=== PATIENT | female | born 1945 | race Caucasian/White ===

== ENCOUNTER 2016-12-11 19:24 | Observation (INO) | payer OTHER ==
[~2016-12-11] VITALS: Ht 162.6 cm; Wt 102.9 kg
[~2016-12-11 19:24] MED LIST: ASCORBIC ACID500 M3 PO; ASPIRIN EC325 MG PO; CLARITIN-D 21 TABLET PO; Claritin-D 24 Hour PO; Combivent IH; DOCUSATE SODIU100 MG PO; DUONEB 2.5-0.5 M3 ML IH; ENDOCET 5-3251 EACH PO; Ecotrin PO; FLONASE16 G1 BOTH NARES; Feosol PO; Flonase BOTH NARES; Glucophage PO; LOVASTATIN40 MG PO; MELOXICAM15 MG PO; METFORMIN HCL500 M1 PO; Maxzide 75/50 PO; Mevacor PO; Mobic PO; OMEPRAZOLE40 M1 PO; OXYCODONE-ACET1 EACH PO; PRILOSEC40 MG PO; PROAIR HFA8.5 GM IH; PROVENTIL,2.5 MG/3 M IH; Percocet 5/325,Endoc PO; PriLOSEC PO; Proventil,Ventolin H IH; QVAR 80 MCG IH; QVAR 80 MCG IN7.3 GM IH; RESTORIL15 MG PO; SINGULAIR10 MG PO; Senokot S,Pericolace PO; Singulair PO; TEMAZEPAM15 MG PO; TRAMADOL HCL50 MG PO; TRIAMTERENE/HC1 EACH PO; VITAMIN D32000 UNI1 PO; Vitamin D PO; oxyCODONE PO
[2016-12-11 19:48] LABS: POINT-OF-CARE METER ID UU13113778; POINT-OF-CARE USER ID 608261302
[2016-12-11 20:11] LABS: HEMATOCRIT 38.8 % (36.0-46.0); MCH 23.2 PG (29.0-34.0); MCHC 29.9 G/DL (30.0-36.0); MCV 77.6 FL (83-99); MEAN PLAT.VOLUME 8.7 uM^3 (9.5-12.4); PLATELET COUNT 453 K/uL (156-360); RBC DIS.WIDTH-CV 18.2 % (11.8-14.6); WHITE BLOOD COUNT 11.4 K/uL (4.1-10.2)
[2016-12-11 20:40] LABS: CHLORIDE 103 mEq/L (99-109); POTASSIUM 4.1 mEq/L (3.7-5.4); SODIUM 141 mEq/L (136-147)
[2016-12-11 20:41] LABS: GLUCOSE 174 mg/dL (70-99)
[2016-12-11 20:43] LABS: ANION GAP 13 MEQ/L (2-14)
[2016-12-11 20:44] LABS: TROP-I INTERPRETATION NEGATIVE; TROPONIN-I < 0.01 ng/mL (0.0-0.30)
[2016-12-11 20:45] LABS: GFR ESTIMATE (CALCULATED) 40 mL/min/
[2016-12-11 20:46] LABS: UREA NITROGEN (BUN) 25 mg/dL (9-23)
[2016-12-11 20:57] LABS: ADD MIUA? YES; BILIRUBIN NEGATIVE; BLOOD NEGATIVE; COLOR YELLOW ((YELLOW)); GLUCOSE (STRIP) NEGATIVE; KETONES NEGATIVE; LEUKOCYTES NEGATIVE; NITRITE NEGATIVE; PROTEIN (STRIP) NEGATIVE; SPECIFIC GRAVITY 1.018 (1.000-1.030); UROBILINOGEN 0.2 MG/DL (0.2-1.0)
[2016-12-11 21:13] LABS: BACTERIA RARE /HPF; EPITHELIAL CELLS RARE /HPF; MUCUS TRACE /LPF; RED BLOOD CELLS 0-5 /HPF (0-5); UCUL ADDED? YES; UNCLASSIFIED CRYSTALS 3+ /HPF
[2016-12-11] MEDS ORDERED: ALBUTEROL2.5 MG/3 M IH (22:21)
[2016-12-11] MEDS ORDERED: PRILOSEC20 MG PO (22:24)
[2016-12-11] MEDS ORDERED: GLIMEPIRIDE4 MG PO (22:26)
[2016-12-11] MEDS ORDERED: EXCEDRIN MIGRA1 EAC3 PO (22:27)
[2016-12-11] MEDS ORDERED: ALAWAY10 ML BOTH EYES (22:27)
[2016-12-12 01:27] LABS: HDL CHOLESTEROL 58 MG/DL (Desirable>=50); LDL CHOLESTEROL 65 mg/dL (Desirable<100); NON-HDL CHOLESTEROL 105 mg/dL (Desirable<160); TOTAL CHOLESTEROL 163 mg/dL (Desirable<200); TRIGLYCERIDES 199 MG/DL (Normal: <150)
[2016-12-12 04:36] VITALS: BP 185/90
[2016-12-12 04:58] LABS: BASOPHIL COUNT 0.1 K/uL (0-0.1); EOSINOPHIL (%) 2.9 % (0-5); EOSINOPHIL COUNT 0.3 K/uL (0-0.3); HEMATOCRIT 36.5 % (36.0-46.0); IMMATURE GRANULOCYTE (%) 0.3 % (0.0-0.7); INSTRUMENT ABS NEUTROPHIL CT 7.5 K/uL; LYMPHOCYTE COUNT 2.9 K/uL (1.0-2.8); MCH 23.4 PG (29.0-34.0); MCV 75.6 FL (83-99); MEAN PLAT.VOLUME 8.8 uM^3 (9.5-12.4); MONOCYTE (%) 6.9 % (3-12); MONOCYTE COUNT 0.8 K/uL (0-0.8); NEUTROPHIL COUNT 7.5 K/uL (1.8-6.4); PLATELET COUNT 397 K/uL (156-360); RBC DIS.WIDTH-CV 18.4 % (11.8-14.6); RBC DIS.WIDTH-SD 49.5 % (39-53); RED BLOOD COUNT 4.83 M/uL (3.80-5.20); WHITE BLOOD COUNT 11.6 K/uL (4.1-10.2)
[2016-12-12 05:19] LABS: CHLORIDE 107 mEq/L (99-109); POTASSIUM 3.9 mEq/L (3.7-5.4); SODIUM 139 mEq/L (136-147)
[2016-12-12 05:22] LABS: GLUCOSE 129 mg/dL (70-99)
[2016-12-12 05:23] LABS: ANION GAP 8 MEQ/L (2-14)
[2016-12-12 05:24] LABS: TOTAL BILIRUBIN 0.4 mg/dL (0.0-1.0)
[2016-12-12 05:25] LABS: ALKALINE PHOSPHATASE 95 IU/L (3-129); GFR ESTIMATE (CALCULATED) 47 mL/min/
[2016-12-12 05:26] LABS: UREA NITROGEN (BUN) 20 mg/dL (9-23)
[2016-12-12 05:27] LABS: PROTHROMBIN TIME 10.4 SEC (10.2-12.9)
[2016-12-12 06:48] LABS: Estimated Average Glucose 146 mg/dL (70-123); HEMOGLOBIN A1c (GLYCOHEMOGLOB) 6.7 % HGB (Below 5.7)
[2016-12-12 07:37] LABS: POINT-OF-CARE METER ID UU13113717
[2016-12-12 08:04] VITALS: BP 183/84
[2016-12-12 11:52] VITALS: BP 167/87
[2016-12-12 12:10] LABS: POINT-OF-CARE METER ID UU13113717
== END 2016-12-12 13:43 | disposition home or self-care (01) ==
LOC: EME 19:24 → EDOF 22:43 → 5SOUTH 22:43 → EDOF 22:43 → ENRESERV 22:51 → 5SOUTH 12-12 04:05
PROVIDERS: Internal Medicine
DX: E11.649 Type 2 diabetes mellitus with hypoglycemia without coma (principal); G45.9 Transient cerebral ischemic attack, unspecified; I10 Essential (primary) hypertension; E78.00 Pure hypercholesterolemia, unspecified; J45.909 Unspecified asthma, uncomplicated; K21.9 Gastro-esophageal reflux disease without esophagitis; I27.2 Other secondary pulmonary hypertension; M19.90 Unspecified osteoarthritis, unspecified site; Z85.3 Personal history of malignant neoplasm of breast; E66.01 Morbid (severe) obesity due to excess calories; Z68.38 Body mass index [BMI] 38.0-38.9, adult; Z90.710 Acquired absence of both cervix and uterus; Z90.49 Acquired absence of other specified parts of digestive tract; Z96.651 Presence of right artificial knee joint; Z79.84 Long term (current) use of oral hypoglycemic drugs; Z79.82 Long term (current) use of aspirin; Z88.0 Allergy status to penicillin; Z88.2 Allergy status to sulfonamides; Z88.1 Allergy status to other antibiotic agents; Z88.5 Allergy status to narcotic agent; Z88.8 Allergy status to other drugs, medicaments and biological substances
CPT/HCPCS: 70450; 71020; 80048; 80048 91; 80053; 80061; 81003; 82948; 83036; 84484; 85025; 85027; 85610; 85730; 87086 GA; 93005; 93306; 93880; 99202; 99281; 99284; G0378; J1644; J7040